=== PATIENT | female | born 1975 | race African-American/Black ===

== ENCOUNTER 2025-02-22 23:46 | Outpatient (BNV) | payer MEDICAID, SELFPAY | END 2025-02-23 13:50 | PROVIDERS: Admitting Provider Psychiatry & Neurology Psychiatry; Responsible Provider Registered Nurse; Visit Provider Internal Medicine | DX: R00.0 Tachycardia, unspecified (principal) | CPT/HCPCS: 93010 ==

== ENCOUNTER 2025-02-22 23:46 | Inpatient (IN) | payer OTHER, SELFPAY ==
[2025-02-23] VITALS (8 sets, daily range): BP systolic 125–177; BP diastolic 88–124; PULSE 95–113; RESP 12–20; TEMP 36.3–37.2; O2SAT 96–98; BMI 49.8
--- NOTE | 2025-02-23 | ECG_ITS ---
Test Reason : PROLONGED QTC Blood Pressure : */* mmHG Vent. Rate : 104 BPM Atrial Rate : 104 BPM P-R Int : 148 ms QRS Dur : 84 ms QT Int : 370 ms P-R-T Axes : 37 7 83 degrees QTcB Int : 486 ms Sinus tachycardia Nonspecific T wave abnormality Abnormal ECG No previous ECGs available Referred By: Lise Rodriguez Electronically Signed By: PAT RIVERA
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
[2025-02-23] MEDS: lisinopriL 5 MG TABLET PO (10:18)
[2025-02-23] MEDS: Acetaminophen 325 MG TABLET 650 MG PO (10:18)
[2025-02-23] MEDS: cloZAPine 25 MG TABLET 150 MG PO (10:18)
[2025-02-23] MEDS: Benztropine Mesylate 0.5 MG TABLET PO ×2 (10:18→20:20)
[2025-02-23] MEDS: amLODIPine Besylate 5 MG TABLET PO ×2 (10:18→14:57)
[2025-02-23] MEDS: metFORMIN HCl 500 MG TABLET PO ×2 (10:18→20:21)
--- NOTE | 2025-02-23 10:33 | HO.PM.IMCN ---
History of Present Illness Data of Consult Service Date: 02/23/25 Primary Care Provider: Unknown Physician HPI Reason for consult: Medical management 49-year-old female with a past medical history of schizoaffective disorder, history of PE July 2024, history of asthma, chronic back pain, hypertension, and type 2 diabetes she was admitted to [facility] ED with delusions, and auditory and visual hallucinations. There is conflicting information regarding her PE, the ED record states that she previously took aspirin as well as apixaban, neither medication was given to her in the ED inpatient reports that it has been 6 months since she has had the PE and she is not taking any medications for this. Patient's blood pressure is elevated today, received lisinopril, amlodipine today. She reports that previously took propranolol as well, will restart this. Reports a history of asthma, takes Advair daily. Not in acute exacerbation. Patient also reports a history of chronic back pain, she takes gabapentin for this, reports that Lidoderm patches are helpful. On review of her previous medical records, she had evidence of an acute kidney injury, on discharge her BUN was 16/creatinine 1.10. She denies any history of kidney issues. Patient reports that she has a every day smoker, would like a nicotine patch. Patient with evidence of prolonged QTC. Review of Systems Review of Systems: Denies any shortness of breath, chest pain, dizziness, lightheadedness, abdominal pain or discomfort, nausea vomiting or diarrhea. PMFSH Social History Household Members: Family Housing: House Do you presently have visiting nurse or other home services: No Patient Tobacco Use Status: Current everyday Tobacco user Tobacco use type: Cigarette and Smokeless Tobacco Cigarette Packs Per Day: 0.3 Cigarettes Per Day: 6.0 Smoked in Last 30 Days: Yes e-Cigarette/Vaping Use: Currently Using Frequency of e-Cigarette/Vaping Use: daily Patient Interested in Nicotine Replacement: Yes Patient Given Instructions on How to Stop Smoking: Yes Date Education Initiated: 02/23/25 Second Hand Smoke Exposure: Yes Have you been hit, kicked, punched, or otherwise hurt by someone within the past year? If so, by whom?: No Do you feel safe in your current relationship?: Yes Is there a partner from a previous relationship who is making you feel unsafe now?: No Are you made to feel afraid or neglected: No Spiritual Healthcare Practices: none reported Anglican Healthcare Practices: none reported Cultural Healthcare Practices: none reported Advance Directives: No Advance Directives Information Provided: Yes Do you have a plan to hurt others: No Plan Recently lost weight without trying: No How much weight loss: Not applicable Eating poorly because of decreased appetite: No Nutrition screen score: 0 Nutrition Risks: Diabetes new onset/Uncontrolled Patient : No : No Poor oral hygiene: No service: No Sexual orientation: Straight/Heterosexual Meds Allergies Allergy/AdvReac Type Severity Reaction Status Date / Time shellfish derived (shellfish) Allergy Difficulty Verified 02/22/25 23:53 Swallowing naproxen AdvReac Hives Verified 02/22/25 23:53 Penicillins (PCN) AdvReac Anaphylaxis Verified 02/22/25 23:53 Active Medications: Current Medications Acetaminophen (Acetaminophen 325 Mg Tablet) 650 mg PO Q6H PRN PRN Reason: Headache/Pain, Scale 1-10 Last Admin: 02/23/25 10:18 Dose: 650 mg Al Hydroxide/Mg Hydroxide (Magnesium Hydrox/Alum Hydrox 30 Ml Oral.Susp) 30 ml PO Q6H PRN PRN Reason: Heartburn/Nausea Albuterol Sulfate (Albuterol Sulfate 90 Mcg 8 Gm Inhaler) 1 puff INHALE RQ4H PRN PRN Reason: Shortness of Breath Amlodipine Besylate (Amlodipine Besylate 5 Mg Tablet) 5 mg PO DAILY [facility]; Protocol Last Admin: 02/23/25 10:18 Dose: 5 mg Benztropine Mesylate (Benztropine Mesylate 0.5 Mg Tablet) 0.5 mg PO BID [facility] Last Admin: 02/23/25 10:18 Dose: 0.5 mg Chlorpromazine HCl (Chlorpromazine Hcl 25 Mg Tablet) 50 mg PO BEDTIME [facility] Chlorpromazine HCl (Chlorpromazine Hcl 25 Mg Tablet) 25 mg PO Q6H PRN PRN Reason: Agitation Clozapine (Clozapine 100 Mg Tablet) 100 mg PO DAILY [facility] Clozapine (Clozapine 100 Mg Tablet) 200 mg PO BEDTIME [facility] Gabapentin (Gabapentin 400 Mg Capsule) 800 mg PO QID [facility] Haloperidol (Haloperidol 5 Mg Tablet) 10 mg PO BID PRN PRN Reason: Agitation Hydroxyzine HCl (Hydroxyzine Hcl 25 Mg Tablet) 25 mg PO Q6H PRN PRN Reason: mild anxiety Lisinopril (Lisinopril 5 Mg Tablet) 5 mg PO DAILY [facility]; Protocol Last Admin: 02/23/25 10:18 Dose: 5 mg Magnesium Hydroxide (Milk Of Magnesia 30 Ml Oral.Susp) 30 ml PO DAILY PRN PRN Reason: Constipation Metformin HCl (Metformin Hcl 500 Mg Tablet) 500 mg PO BID [facility] Last Admin: 02/23/25 10:18 Dose: 500 mg Nicotine Polacrilex (Nicotine Polacrilex 2 Mg Gum) 4 mg BUCCAL Q2H PRN PRN Reason: Nicotine Cravings Oxybutynin Chloride (Oxybutynin Chloride 5 Mg Tablet) 5 mg PO BID [facility] Prazosin HCl (Prazosin Hcl 1 Mg Capsule) 1 mg PO BEDTIME [facility]; Protocol Senna (Sennosides 8.6 Mg Tablet) 17.2 mg PO DAILY [facility] Trazodone HCl (Trazodone Hcl 50 Mg Tablet) 50 mg PO BEDTIME MRX1 PRN PRN Reason: Insomnia Trazodone HCl (Trazodone Hcl 100 Mg Tablet) 100 mg PO BEDTIME [facility] Home Medications ?Medication ?Instructions ?Recorded ?Confirmed ?Last Taken ?Type albuterol sulfate 90 mcg/actuation See Rx Instructions .Route 02/23/25 02/23/25 02/22/25 History aerosol inhaler (Ventolin HFA) .COMPLEX PRN Shortness Of Breath amlodipine 5 mg tablet 5 mg PO DAILY 02/23/25 02/23/25 Unknown History aspirin 325 mg tablet,delayed 325 mg PO DAILY 02/23/25 02/23/25 Unknown History release benztropine 0.5 mg tablet 0.5 mg PO BID 02/23/25 02/23/25 02/21/25 History calcium carbonate (Иван-Gest 200 mg PO TID PRN Gastric Reflux 02/23/25 02/23/25 Unknown History Antacid) chlorpromazine 25 mg tablet 25 mg PO Q6H PRN Agitation 02/23/25 02/23/25 Unknown History chlorpromazine 50 mg tablet 50 mg PO BEDTIME insomnia 02/23/25 02/23/25 02/22/25 20:00 History clozapine 100 mg tablet 100 mg PO DAILY 02/23/25 02/23/25 02/21/25 09:30 History clozapine 200 mg tablet 200 mg PO BEDTIME 02/23/25 02/23/25 02/22/25 20:00 History cyanocobalamin (vitamin B-12) 2,000 mcg DAILY 02/23/25 02/23/25 Unknown History 1,000 mcg tablet (Vitamin B-12) diclofenac sodium 1 % topical gel topical 02/23/25 Unknown History fluticasone propionate 50 intranasal DAILY 02/23/25 Unknown History mcg/actuation nasal spray,suspension gabapentin 800 mg tablet 800 mg PO QID pain 02/23/25 02/23/25 02/22/25 20:00 History haloperidol 5 mg tablet 10 mg PO BID PRN Agitation 02/23/25 02/23/25 02/22/25 12:20 History hydroxyzine pamoate 50 mg capsule 50 mg PO BID 02/23/25 02/23/25 Unknown History lidocaine 5 % topical patch 1 patch topical DAILY 02/23/25 02/23/25 Unknown History lisinopril 5 mg tablet 5 mg PO DAILY blood pressure 02/23/25 02/23/25 02/22/25 09:00 History melatonin 3 mg tablet 3 mg PO PRN Insomnia 02/23/25 Unknown History metformin 500 mg tablet 500 mg PO BID 02/23/25 02/23/25 Unknown History oxybutynin chloride 5 mg tablet 5 mg PO BID 02/23/25 02/23/25 Unknown History prazosin 1 mg capsule 1 mg PO BEDTIME 02/23/25 02/23/25 Unknown History sennosides 8.6 mg tablet (senna) 17.2 mg PO DAILY 02/23/25 02/23/25 Unknown History trazodone 100 mg tablet 100 mg PO BEDTIME 02/23/25 02/23/25 Unknown History Physical Exam Vital Signs and Narrative: Vital Signs: Last Vital Signs Temp 97.4 F 02/23/25 07:05 Pulse 95 02/23/25 07:05 Resp 16 02/23/25 08:55 BP 170/94 H 02/23/25 10:18 Pulse Ox 98 02/23/25 07:05 O2 Del Method Room Air 02/23/25 07:05 BMI result Body Mass Index 49.8 Alert and oriented X3, able to give good history. Weepy at times. Neuro: CN II-X11 intact, no deficits, visual acuity intact EYES: PERRLA, EOM intact ENT: Hearing intact, lips moist Cardiac: S1 S2 RRR, No ectopy Pulmonary: lungs clear to auscultation, No increased WOB. No wheeze Abdominal: BS active in all 4 quadrants, no guarding or tenderness MSK: Strength 5/5 upper and lower extremities : Deferred Extremities: No edema in lower extremities Psych: mood stable, Quiet and cooperative. Skin: Warm and dry, Intact Assessment and Plan (1) HTN (hypertension): Status: Acute Plan Schizoaffective disorder/auditory and visual hallucinations. Plan per psychiatric team Hypertension Continue lisinopril and Norvasc, add propranolol. Continue to follow up in adjust medications as needed History of PE Not on aspirin or apixaban Diagnosed 07/2024, has been 6 months since she was diagnosed with a PE. Will need follow up with her primary care upon discharge Type 2 diabetes Continue metformin 500 b.i.d., check A1c. Asthma Start Breo and albuterol as needed Not in acute exacerbation Chronic back pain Continue gabapentin as ordered, on max dose We will need adjustments based on renal function Tylenol as needed, and Lidoderm patches Thank you for allowing me to participate in the care of this patient. Signing off at this time. Please reconsult of any acute concerns or issues arise
--- NOTE | 2025-02-23 10:49 | PC.NURSE ---
Patient submitted three day notice
[2025-02-23] MEDS: Propranolol HCL 10 MG TABLET PO ×2 (12:15→20:20)
[2025-02-23] MEDS: Albuterol Sulfate 90 MCG 8 GM INHALER 1 PUFF INHALE (12:16)
[2025-02-23] MEDS: Gabapentin 400 MG CAPSULE 800 MG PO ×3 (12:16→20:19)
[2025-02-23] MEDS: Lidocaine 4 % Patch ADH..PATCH 1 PATCH TRANSDERMA (12:16)
[2025-02-23] MEDS: Nicotine 21 MG PATCH.TD24 TRANSDERMA (14:56)
[2025-02-23] MEDS: Acetaminophen 325 MG TABLET 975 MG PO (16:37)
[2025-02-23] MEDS: hydrOXYzine HCL 25 MG TABLET PO (16:46)
[2025-02-23] MEDS: HaloperidoL 5 MG TABLET 10 MG PO (18:51)
[2025-02-23] MEDS: Prazosin HCL 1 MG CAPSULE PO (20:19)
[2025-02-23] MEDS: cloZAPine 100 MG TABLET 200 MG PO (20:20)
[2025-02-23] MEDS: traZODone HCL 100 MG TABLET PO (20:20)
[2025-02-23] MEDS: oxyBUTYnin chloride 5 MG TABLET PO (20:21)
[2025-02-23] MEDS: chlorproMAZINE HCl 25 MG TABLET 50 MG PO (20:21)
[2025-02-24] MEDS: hydrOXYzine HCL 25 MG TABLET PO ×2 (06:44→13:08)
[2025-02-24] MEDS: Acetaminophen 325 MG TABLET 975 MG PO ×3 (06:44→22:15)
[2025-02-24 07:41] VITALS: BP 159/111; PULSE 94; RESP 16; TEMP 36.7; O2SAT 99
[2025-02-24] MEDS: Sennosides 8.6 MG TABLET 17.2 MG PO (08:05)
[2025-02-24] MEDS: Propranolol HCL 10 MG TABLET PO ×2 (08:06→21:33)
[2025-02-24] MEDS: cloZAPine 100 MG TABLET PO (08:06)
[2025-02-24] MEDS: metFORMIN HCl 500 MG TABLET PO ×2 (08:06→21:33)
[2025-02-24] MEDS: Benztropine Mesylate 0.5 MG TABLET PO ×2 (08:06→21:34)
[2025-02-24] MEDS: lisinopriL 5 MG TABLET PO (08:06)
[2025-02-24 08:07] LABS: MANUAL DIFF FLAG NO
[2025-02-24] MEDS: Gabapentin 400 MG CAPSULE 800 MG PO ×4 (08:07→21:34)
[2025-02-24] MEDS: oxyBUTYnin chloride 5 MG TABLET PO ×2 (08:07→21:33)
[2025-02-24 08:09] LABS: Basophils Percent Auto 0.1 % (0-2); Hematocrit 34.7 % (37.0-47.0); Hemoglobin 11.6 g/dl (12.0-16.0); Imm Gran Abs Auto 0.03 X10*3/uL (0.00-0.03); Imm Gran Pct Auto 0.4 % (0.0-0.4); Lymphocytes Percent Auto 22.9 % (20-40); Mean Corpuscular HGB Conc 33.4 g/dl (31.0-35.0); Mean Corpuscular Hemoglobin 29.6 pg (27.0-33.0); Mean Corpuscular Volume 88.5 fL (80.0-98.0); Mean Platelet Volume 8.7 fL (9.4-12.3); Monocytes Absolute Auto 0.4 X10*3/uL (0.1-1.2); Monocytes Percent Auto 4.8 % (2-11); Neutrophils Absolute Auto 6.2 x10*3/uL (2.0-8.3); Neutrophils Percent Auto 71.8 % (45-73); Platelet Count 333 X10*3/uL (160-400); Red Blood Count 3.92 X10*6/uL (4.20-5.50); Red Cell Distribution Width 15.1 % (11.0-16.0); White Blood Count 8.6 X10*3/uL (4.8-10.8)
[2025-02-24] MEDS: Nicotine 21 MG PATCH.TD24 TRANSDERMA (08:09)
[2025-02-24 08:10] LABS: Neut%MD 71.7 %; WBCANC 8.4 X10*3/uL
[2025-02-24] MEDS: Lidocaine 4 % Patch ADH..PATCH 1 PATCH TRANSDERMA (08:11)
[2025-02-24 08:22] LABS: Creatinine Clr Calc Pharmacy 106.8; Estimated Glomerular Filt Rate > 60
[2025-02-24 08:24] LABS: Estimated Average Glucose 146 mg/dL; Hemoglobin A1c % 6.7 % (<6.0)
[2025-02-24 08:36] LABS: Alanine Aminotransferase 6 U/L (0-31); Alkaline Phosphatase 121 U/L (39-117); Anion Gap 13 (12-20); Aspartate Amino Transferase 16 U/L (5-31); Bilirubin Total 0.2 mg/dL (0.0-1.0); Blood Urea Nitrogen 16 mg/dL (9-16); Calcium 9.8 mg/dL (8.4-10.2); Carbon Dioxide 29 mmol/L (22-29); Chloride 103 mmol/L (96-108); Creatinine Clr Calc Pharmacy 106.8; Estimated Glomerular Filt Rate > 60; Glucose Random 151 mg/dL (60-115); Potassium 4.2 mmol/L (3.3-5.1); Sodium 141 mmol/L (135-145); Total Protein 7.1 g/dL (6.5-8.0)
[2025-02-24 08:37] LABS: Cholesterol 214 mg/dL (<200); HDL Cholesterol 49 mg/dL (>40); LDL Cholesterol Calculated 112 mg/dL (<100); Triglycerides 267 mg/dL (<150)
[2025-02-24] MEDS: Fluticasone/Vilanterol 200/25 BLST.W.DEV 1 PUFF INHALE (08:44)
[2025-02-24] MEDS: HaloperidoL 5 MG TABLET 10 MG PO ×2 (08:44→22:15)
[2025-02-24 08:46] LABS: TSH reflex Free T4 1.06 uIU/mL (0.32-4.0)
[2025-02-24 08:48] LABS: Free T4 (Free Thyroxine) 1.05 ng/dL (0.71-1.85); Thyroid Stimulating Hormone 1.04 uIU/mL (0.32-4.0)
[2025-02-24 08:59] LABS: Folate 8.1 ng/mL (> or = 4.0); Vitamin B12 360 pg/mL (200-900)
--- NOTE | 2025-02-24 10:20 | HO.PSYCHPN ---
Subjective Subjective Date of Service: 02/24/25 Reason For Visit: Schizoaffective Disorder, Current Episode mixed Subjective Notes: 3 Day Interim History: Keeping to self. Patient reports feeling fine today; pt stated, I'm waiting to leave on Saturday . denies any issues at this time. denies SI/HI/VH/AH. Pt did not make any delusional statements during assessment. c/o constipation; ordered colace 100mg PO BID. encouraged to attend groups. 3 day up on 02/26/25. Medication Compliance: Yes Side effects from medications: No Attending Groups: No Mental Status Exam Mental Status Exam Narrative: Pt is alert and oriented; behavior is cooperative and calm; dressed in casual attire; mood is described as good ; eye contact appropriate; Speech is normal rate, volume and not pressured; thought process is organized; Thought content is on discharge; did not make any delusional statements during assessment; denies SI/HI/VH/AH. Diagnostics Vital Signs (24Hr): Vital Signs - 24 hr 02/23/25 12:15 02/23/25 12:15 02/23/25 13:54 Temperature Pulse Rate 113 H 113 H 104 H Respiratory Rate 20 Blood Pressure 157/112 H 157/112 H 140/104 H Pulse Oximetry Oxygen Delivery Method 02/23/25 14:57 02/23/25 19:15 02/24/25 07:41 Temperature 98.1 F 98.1 F Pulse Rate 99 94 Respiratory Rate 16 16 Blood Pressure 139/88 169/91 H 159/111 H Pulse Oximetry 96 99 Oxygen Delivery Method Room Air Room Air BMI result Body Mass Index 49.8 Labs 02/24/25 08:01 02/24/25 08:01 Labs: Laboratory Results - last 48 hr 02/24/25 02/24/25 02/24/25 08:01 08:01 08:01 WBC 8.6 RBC 3.92 L Hgb 11.6 L Hct 34.7 L MCV 88.5 MCH 29.6 MCHC 33.4 RDW 15.1 Plt Count 333 MPV 8.7 L Immature Gran % (Auto) 0.4 Neut % (Auto) 71.8 Lymph % (Auto) 22.9 [place] % (Auto) 4.8 Eos % (Auto) 0.0 Baso % (Auto) 0.1 Lymph # (Auto) 2.0 [place] # (Auto) 0.4 Eos # (Auto) 0.0 Baso # (Auto) 0.0 Abs Immat Gran (auto) 0.03 Absolute Neuts (auto) 6.0 6.2 Absolute Nucleated RBC 0.000 Nucleated RBC % (auto) 0.0 Sodium 141 Potassium 4.2 Chloride 103 Carbon Dioxide 29 Anion Gap 13 BUN 16 Creatinine 0.91 0.91 Estim Creat Clear Calc 106.8 Estimated GFR Random Glucose Estimat Average Glucose Hemoglobin A1c % Calcium Total Bilirubin AST ALT Alkaline Phosphatase Total Protein Albumin Triglycerides Cholesterol LDL Cholesterol, Calc HDL Cholesterol Vitamin B12 Folate TSH Free T4 02/24/25 02/24/25 02/24/25 08:01 08:01 08:01 WBC RBC Hgb Hct MCV MCH MCHC RDW Plt Count MPV Immature Gran % (Auto) Neut % (Auto) Lymph % (Auto) [place] % (Auto) Eos % (Auto) Baso % (Auto) Lymph # (Auto) [place] # (Auto) Eos # (Auto) Baso # (Auto) Abs Immat Gran (auto) Absolute Neuts (auto) Absolute Nucleated RBC Nucleated RBC % (auto) Sodium Potassium Chloride Carbon Dioxide Anion Gap BUN Creatinine Estim Creat Clear Calc 106.8 Estimated GFR > 60 > 60 Random Glucose 151 H Estimat Average Glucose 146 Hemoglobin A1c % 6.7 H Calcium 9.8 Total Bilirubin 0.2 AST 16 ALT 6 Alkaline Phosphatase 121 H Total Protein 7.1 Albumin 4.0 Triglycerides 267 H Cholesterol 214 H LDL Cholesterol, Calc 112 H HDL Cholesterol 49 Vitamin B12 360 Folate 8.1 TSH 1.06 1.04 Free T4 1.05 Medications Medications Current Medications Acetaminophen (Acetaminophen 325 Mg Tablet) 975 mg PO Q6H PRN PRN Reason: Pain, Moderate(Pain Scale 4-6) Last Admin: 02/24/25 06:44 Dose: 975 mg Al Hydroxide/Mg Hydroxide (Magnesium Hydrox/Alum Hydrox 30 Ml Oral.Susp) 30 ml PO Q6H PRN PRN Reason: Heartburn/Nausea Albuterol Sulfate (Albuterol Sulfate 90 Mcg 8 Gm Inhaler) 1 puff INHALE RQ4H PRN PRN Reason: Shortness of Breath Last Admin: 02/23/25 12:16 Dose: 1 puff Albuterol Sulfate (Albuterol Sulfate 90 Mcg 8 Gm Inhaler) 2 puff INHALE RQ6H PRN PRN Reason: Shortness of Breath/Wheezing Amlodipine Besylate (Amlodipine Besylate 10 Mg Tablet) 10 mg PO BEDTIME [facility]; Protocol Benztropine Mesylate (Benztropine Mesylate 0.5 Mg Tablet) 0.5 mg PO BID [facility] Last Admin: 02/24/25 08:06 Dose: 0.5 mg Chlorpromazine HCl (Chlorpromazine Hcl 25 Mg Tablet) 50 mg PO BEDTIME [facility] Last Admin: 02/23/25 20:21 Dose: 50 mg Chlorpromazine HCl (Chlorpromazine Hcl 25 Mg Tablet) 25 mg PO Q6H PRN PRN Reason: Agitation Clozapine (Clozapine 100 Mg Tablet) 100 mg PO DAILY [facility] Last Admin: 02/24/25 08:06 Dose: 100 mg Clozapine (Clozapine 100 Mg Tablet) 200 mg PO BEDTIME [facility] Last Admin: 02/23/25 20:20 Dose: 200 mg Docusate Sodium (Docusate Sodium 100 Mg Capsule) 100 mg PO BID [facility] Fluticasone/Vilanterol (Fluticasone/Vilanterol 200/25 Blst.W.Dev) 1 puff INHALE RDAILY [facility] Last Admin: 02/24/25 08:44 Dose: 1 puff Gabapentin (Gabapentin 400 Mg Capsule) 800 mg PO QID [facility] Last Admin: 02/24/25 08:07 Dose: 800 mg Haloperidol (Haloperidol 5 Mg Tablet) 10 mg PO BID PRN PRN Reason: Agitation Last Admin: 02/24/25 08:44 Dose: 10 mg Hydroxyzine HCl (Hydroxyzine Hcl 25 Mg Tablet) 25 mg PO Q6H PRN PRN Reason: mild anxiety Last Admin: 02/24/25 06:44 Dose: 25 mg Lidocaine (Lidocaine 4 % Patch Adh..Patch) 1 patch TRANSDERMA DAILY [facility]; Protocol Last Admin: 02/24/25 08:11 Dose: 1 patch Lisinopril (Lisinopril 5 Mg Tablet) 5 mg PO DAILY [facility]; Protocol Last Admin: 02/24/25 08:06 Dose: 5 mg Magnesium Hydroxide (Milk Of Magnesia 30 Ml Oral.Susp) 30 ml PO DAILY PRN PRN Reason: Constipation Metformin HCl (Metformin Hcl 500 Mg Tablet) 500 mg PO BID [facility] Last Admin: 02/24/25 08:06 Dose: 500 mg Nicotine (Nicotine 21 Mg Patch.Td24) 21 mg TRANSDERMA DAILY [facility] Last Admin: 02/24/25 08:09 Dose: 21 mg Nicotine Polacrilex (Nicotine Polacrilex 2 Mg Gum) 4 mg BUCCAL Q2H PRN PRN Reason: Nicotine Cravings Oxybutynin Chloride (Oxybutynin Chloride 5 Mg Tablet) 5 mg PO BID [facility] Last Admin: 02/24/25 08:07 Dose: 5 mg Prazosin HCl (Prazosin Hcl 1 Mg Capsule) 1 mg PO BEDTIME [facility]; Protocol Last Admin: 02/23/25 20:19 Dose: 1 mg Propranolol HCl (Propranolol Hcl 10 Mg Tablet) 10 mg PO BID [facility]; Protocol Last Admin: 02/24/25 08:06 Dose: 10 mg Senna (Sennosides 8.6 Mg Tablet) 17.2 mg PO DAILY [facility] Last Admin: 02/24/25 08:05 Dose: 17.2 mg Trazodone HCl (Trazodone Hcl 100 Mg Tablet) 100 mg PO BEDTIME [facility] Last Admin: 02/23/25 20:20 Dose: 100 mg Allergies Allergies Allergy/AdvReac Type Severity Reaction Status Date / Time ibuprofen Allergy Unknown Unknown Unverified 02/23/25 14:26 shellfish derived (shellfish) Allergy Difficulty Verified 02/22/25 23:53 Swallowing naproxen AdvReac Hives Verified 02/22/25 23:53 Penicillins (PCN) AdvReac Anaphylaxis Verified 02/22/25 23:53 Assessment & Plan Assessment & Plan (1) Schizoaffective disorder: Status: Acute Code(s): F25.9 - Schizoaffective disorder, unspecified (2) PTSD (post-traumatic stress disorder): Status: Acute Code(s): F43.10 - Post-traumatic stress disorder, unspecified (3) Cocaine use disorder: Status: Acute Code(s): F14.10 - Cocaine abuse, uncomplicated Plan Patient is a 49 year old female with hx of schizoaffective d/o, PTSD and cocaine use d/o, who presented to ER d/t suicidal ideation with thoughts of jumping into traffic secondary to argument with family members. Plan: CV 15 minute safety checks obtain collateral continue home medications labs encourage groups discharge planning 02/24: Keeping to self. Patient reports feeling fine today; pt stated, I'm waiting to leave on Brian . denies any issues at this time. denies SI/HI/VH/AH. Pt did not make any delusional statements during assessment. c/o constipation; ordered colace 100mg PO BID. encouraged to attend groups. 3 day up on 02/26/25. Continue curren tx plan. Patient educated on: diagnosis, medication risk/benefits and therapeutic strategies Reason for continued inpatient stay Substantial Risk for: med/psych decompensation Time Spent With Patient Time: Total time managing care of this patient today _20___ minutes.
[2025-02-24] MEDS: Docusate Sodium 100 MG CAPSULE PO ×2 (11:28→21:34)
[2025-02-24 11:39] LABS: Influenza A PCR NEGATIVE (Negative); Influenza B PCR NEGATIVE (Negative); Resp Syncy Virus RNA Qual PCR NEGATIVE (Negative); SARS COV2 PCR INHOUSE NEGATIVE (Negative)
[2025-02-24] MEDS: chlorproMAZINE HCl 25 MG TABLET PO (13:09)
[2025-02-24] MEDS: Magnesium Hydrox/Alum Hydrox 30 ML ORAL.SUSP PO (13:36)
[2025-02-24] MEDS: Milk of Magnesia 30 ML ORAL.SUSP PO (15:04)
[2025-02-24 21:30] VITALS: BP 138/93; PULSE 103; O2SAT 93
[2025-02-24] MEDS: traZODone HCL 100 MG TABLET PO (21:33)
[2025-02-24] MEDS: chlorproMAZINE HCl 25 MG TABLET 50 MG PO (21:33)
[2025-02-24] MEDS: amLODIPine Besylate 10 MG TABLET PO (21:33)
[2025-02-24] MEDS: cloZAPine 100 MG TABLET 200 MG PO (21:34)
[2025-02-25 07:56] VITALS: BP 136/91; PULSE 113; RESP 16; O2SAT 98
[2025-02-25] MEDS: lisinopriL 5 MG TABLET PO ×2 (08:23→12:23)
[2025-02-25] MEDS: Propranolol HCL 10 MG TABLET PO ×2 (08:23→21:40)
[2025-02-25] MEDS: Gabapentin 400 MG CAPSULE 800 MG PO ×4 (08:23→21:37)
[2025-02-25] MEDS: Benztropine Mesylate 0.5 MG TABLET PO ×2 (08:23→21:36)
[2025-02-25] MEDS: Docusate Sodium 100 MG CAPSULE PO ×2 (08:23→21:37)
[2025-02-25] MEDS: Sennosides 8.6 MG TABLET 17.2 MG PO (08:23)
[2025-02-25] MEDS: oxyBUTYnin chloride 5 MG TABLET PO ×2 (08:24→21:37)
[2025-02-25] MEDS: metFORMIN HCl 500 MG TABLET PO ×2 (08:24→21:37)
[2025-02-25] MEDS: cloZAPine 100 MG TABLET PO (08:24)
[2025-02-25] MEDS: Nicotine 21 MG PATCH.TD24 TRANSDERMA (08:26)
[2025-02-25] MEDS: Fluticasone/Vilanterol 200/25 BLST.W.DEV 1 PUFF INHALE (08:27)
[2025-02-25 08:35] LABS: Estimated Average Glucose 146 mg/dL; Hemoglobin A1C 150.9187 umol/L; Hemoglobin A1c % 6.7 % (<6.0)
[2025-02-25] MEDS: HaloperidoL 5 MG TABLET 10 MG PO ×2 (08:35→21:39)
[2025-02-25] MEDS: hydrOXYzine HCL 25 MG TABLET PO ×2 (08:35→21:54)
[2025-02-25] MEDS: Acetaminophen 325 MG TABLET 975 MG PO ×2 (08:35→21:54)
[2025-02-25] MEDS: Lidocaine 4 % Patch ADH..PATCH 1 PATCH TRANSDERMA (08:37)
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
[2025-02-25 12:23] VITALS: BP 141/84
--- NOTE | 2025-02-25 16:24 | P.DS_ITS ---
DS: Providers Provider Date of Service: 02/25/25 Date of admission: 02/22/25 23:46 Date of discharge: 02/26/25 Primary care physician: Unknown Physician Admitting clinician: Malaika Plascencia Attending physician on admission: Osmar Price Consults: 02/23/25 00:25 Consult to Hospitalist Routine Comment: Consulting Provider: [facility] Reason For Exam: OSH admission 02/23/25 14:04 Consult to Hospitalist Routine Comment: Consulting Provider: [facility] Reason For Exam: hypertension Attending physician on discharge: Osmar Price Discharging clinician: Malaika Plascencia DS: Diagnosis Discharge Diagnosis (1) Schizoaffective disorder: Status: Acute (2) PTSD (post-traumatic stress disorder): Status: Acute (3) Cocaine use disorder: Status: Acute DS: Medications Discharge Medications Home Medications: Previous Rx's ?Medication ?Instructions ?Recorded albuterol sulfate 90 mcg/actuation See Rx Instructions .Route 02/26/25 aerosol inhaler (Ventolin HFA) .COMPLEX PRN Shortness Of Breath 30 days #1 inhaler amlodipine 10 mg tablet 10 mg PO BEDTIME 30 days #30 tabs 02/26/25 aspirin 325 mg tablet,delayed 325 mg PO DAILY 30 days #30 tabs 02/26/25 release benztropine 0.5 mg tablet 0.5 mg PO BID 30 days #60 ta bs 02/26/25 calcium carbonate (Иван-Gest 200 mg PO TID PRN Gastric Reflux 02/26/25 Antacid) 30 days #90 tabs chlorpromazine 25 mg tablet 50 mg (2 x 25 mg) PO BID 3 0 days 02/26/25 #120 tabs cholecalciferol (vitamin D3) 25 25 mcg PO DAILY 30 day s #30 caps 02/26/25 mcg (1,000 unit) capsule (Vitamin D3) clozapine 100 mg tablet 100 mg PO DAILY 30 days #30 tabs 02/26/25 clozapine 200 mg tablet 200 mg PO BEDTIME 30 days #3 0 tabs 02/26/25 cyanocobalamin (vitamin B-12) 2,000 mcg (2 x 1,000 mcg ) PO DAILY 02/26/25 1,000 mcg tablet (Vitamin B-12) 30 days #60 tabs diclofenac sodium 1 % topical gel 2 g topical BID-TID 30 days #100 02/26/25 grams docusate sodium 100 mg capsule 100 mg PO BID 30 days # 60 caps 02/26/25 fluticasone propionate 115 2 puff inhalation BID 30 da ys #12 02/26/25 mcg-salmeterol 21 mcg/actuation grams HFA inhaler (Advair HFA) fluticasone propionate 50 1 spray intranasal DAILY 30 days 02/26/25 mcg/actuation nasal #16 grams spray,suspension gabapentin 800 mg tablet 800 mg PO QID pain 30 days # 120 02/26/25 tabs haloperidol 5 mg tablet 10 mg (2 x 5 mg) PO TID Agit ation 02/26/25 30 days #180 tabs hydroxyzine pamoate 50 mg capsule 50 mg PO QID 30 days #120 caps 02/26/25 lidocaine 5 % topical patch 1 patch topical DAILY 30 d ays #30 02/26/25 ea lisinopril 10 mg tablet 10 mg PO DAILY 30 days #30 t abs 02/26/25 melatonin 3 mg tablet 3 mg PO BEDTIME PRN Insomnia 30 02/26/25 days #30 tabs metformin 500 mg tablet 500 mg PO BID 30 days #60 ta bs 02/26/25 nicotine (polacrilex) 2 mg gum 4 mg buccal Q2H PRN Jose otine 02/26/25 Cravings 30 days #120 ea nicotine 21 mg/24 hr daily 21 mg transdermal DAILY 28 days 02/26/25 transdermal patch #28 ea oxybutynin chloride 5 mg tablet 5 mg PO BID 30 days #6 0 tabs 02/26/25 propranolol 10 mg tablet 10 mg PO BID 30 days #60 tab s 02/26/25 sennosides 8.6 mg tablet (senna) 17.2 mg (2 x 8.6 mg) PO DAILY 30 02/26/25 days #60 tabs trazodone 100 mg tablet 100 mg PO BEDTIME 30 days #3 0 tabs 02/26/25 Mental Status Exam Mental Status Exam Narrative: Pt is alert and oriented; behavior is cooperative and calm; dressed in casual attire; mood is described as good ; eye contact appropriate; Speech is normal rate, volume and not pressured; thought process is organized; Thought content is on discharge; denies SI/HI/VH/AH. Data Data Completed and Pending Completed studies during hospitalization [Text1]: 02/24/25 02/24/25 02/24/25 08:01 08:01 08:01 WBC 8.6 RBC 3.92 L Hgb 11.6 L Hct 34.7 L MCV 88.5 MCH 29.6 MCHC 33.4 RDW 15.1 Plt Count 333 MPV 8.7 L Immature Gran % (Auto) 0.4 Neut % (Auto) 71.8 Lymph % (Auto) 22.9 [place] % (Auto) 4.8 Eos % (Auto) 0.0 Baso % (Auto) 0.1 Lymph # (Auto) 2.0 [place] # (Auto) 0.4 Eos # (Auto) 0.0 Baso # (Auto) 0.0 Abs Immat Gran (auto) 0.03 Absolute Neuts (auto) 6.0 6.2 Absolute Nucleated RBC 0.000 Nucleated RBC % (auto) 0.0 Sodium 141 Potassium 4.2 Chloride 103 Carbon Dioxide 29 Anion Gap 13 BUN 16 Creatinine 0.91 0.91 Estim Creat Clear Calc 106.8 Estimated GFR Random Glucose Estimat Average Glucose Hemoglobin A1c % Calcium Total Bilirubin AST ALT Alkaline Phosphatase Total Protein Albumin Triglycerides Cholesterol LDL Cholesterol, Calc HDL Cholesterol Vitamin B12 Folate TSH Free T4 Influenza Type A (PCR) Influenza Type B (PCR) RSV RNA Qual (PCR) SARS-CoV-2 RNA (RT-PCR) 02/24/25 02/24/25 02/24/25 08:01 08:01 08:01 WBC RBC Hgb Hct MCV MCH MCHC RDW Plt Count MPV Immature Gran % (Auto) Neut % (Auto) Lymph % (Auto) [place] % (Auto) Eos % (Auto) Baso % (Auto) Lymph # (Auto) [place] # (Auto) Eos # (Auto) Baso # (Auto) Abs Immat Gran (auto) Absolute Neuts (auto) Absolute Nucleated RBC Nucleated RBC % (auto) Sodium Potassium Chloride Carbon Dioxide Anion Gap BUN Creatinine Estim Creat Clear Calc 106.8 Estimated GFR > 60 > 60 Random Glucose 151 H Estimat Average Glucose 146 Hemoglobin A1c % 6.7 H Calcium 9.8 Total Bilirubin 0.2 AST 16 ALT 6 Alkaline Phosphatase 121 H Total Protein 7.1 Albumin 4.0 Triglycerides 267 H Cholesterol 214 H LDL Cholesterol, Calc 112 H HDL Cholesterol 49 Vitamin B12 360 Folate 8.1 TSH 1.06 1.04 Free T4 1.05 Influenza Type A (PCR) Influenza Type B (PCR) RSV RNA Qual (PCR) SARS-CoV-2 RNA (RT-PCR) 02/24/25 02/25/25 10:40 07:47 WBC RBC Hgb Hct MCV MCH MCHC RDW Plt Count MPV Immature Gran % (Auto) Neut % (Auto) Lymph % (Auto) [place] % (Auto) Eos % (Auto) Baso % (Auto) Lymph # (Auto) [place] # (Auto) Eos # (Auto) Baso # (Auto) Abs Immat Gran (auto) Absolute Neuts (auto) Absolute Nucleated RBC Nucleated RBC % (auto) Sodium Potassium Chloride Carbon Dioxide Anion Gap BUN Creatinine Estim Creat Clear Calc Estimated GFR Random Glucose Estimat Average Glucose 146 Hemoglobin A1c % 6.7 H Calcium Total Bilirubin AST ALT Alkaline Phosphatase Total Protein Albumin Triglycerides Cholesterol LDL Cholesterol, Calc HDL Cholesterol Vitamin B12 Folate TSH Free T4 Influenza Type A (PCR) NEGATIVE Influenza Type B (PCR) NEGATIVE RSV RNA Qual (PCR) NEGATIVE SARS-CoV-2 RNA (RT-PCR) NEGATIVE DS: Summary Hospital Course Hospital Course: Patient is a 49 year old female with hx of schizoaffective d/o, PTSD and cocaine use d/o, who presented to ER d/t suicidal ideation with thoughts of jumping into traffic secondary to argument with family members. Per crisis report, Patient called 911 with thoughts of wanting to harm herself and others. Pt reports intermittent low mood with vague AH/VH. SI/HI diminished while in ER. pt reports intermittent hallucinations of ghosts and vague voices. denies SI/HI. Patient presents with delusional statements saying she is a psychic-psychiatrist and she attended [facility] for this 2 years ago. Patient reports she birthed 3 babies, 5 months ago and has not seen them since. She is worried her took them to [place] where he is from ; She states her is a doctor and pro football player for [employer]. She reports that her family does not care about her and wants to kill her for insurance money. She reportedly got into an argument with them this morning which resulted in having suicidal thoughts with a plan to jump into traffic. History of suicide attempts; last being 2 years ago via intentional overdose on fentanyl. Patient was discharged from [facility] earlier this month and is not sure what medication she should be taking. Utox positive for cocaine. During admission assessment, patient presents alert and oriented x3. calm and cooperative. Grandiose delusions. Paranoid ideation. Patient stated, I was staying in a [facility]. My son and mother took out an insurance plan on me and they are trying to harm me. The keep coming to see me where I was . Patient denies substance use however, utox positive for cocaine. Patient denies auditory and visual hallucinations at this time; patient stated, sometimes I see ghosts and hear voices but nothing today . She reports having 10 children who are with her . She reports being related to various musicians. Denies SI/HI/VH/AH. Patient reports having outpatient psychiatric providers. Patient stated, I mentally feel stable. I just want to go back to my domestic violence prison. I don't want to hurt myself or anyone else . Patient was able to state medications and dosages that she is currently prescribed. Plan: CV 15 minute safety checks obtain collateral continue home medications labs encourage groups discharge planning Keeping to self. Patient reports feeling fine today; pt stated, I'm waiting to leave on Saturday . denies any issues at this time. denies SI/HI/VH/AH. Pt did not make any delusional statements during assessment. c/o constipation; ordered colace 100mg PO BID. encouraged to attend groups. 3 day up on 02/26/25. Continue todd tx plan. Patient reports feeling good ; pt stated, I have a phone intake today for another domestic violence prison. If I don't get in there then I'll figure it out and go back to [place] . denies SI/HI/VH/AH. 3 day up on 02/26/25. patient plans on following up with outpatient providers. Status at Discharge Cognitive/behavioral status at discharge: Patient has insight and demonstrates good judgment in terms of wanting to pursue treatment. Patient has a safety plan that includes presenting to the closest ER or calling 911 if feeling unsafe. Functional status at discharge: independent ambulation Overall status at discharge: patient is back to baseline Time Spent with Patient Time attestation: Total time managing care of this patient today _20___ minutes. Time spent: Less than 30 minutes Discharge Plan Discharge Anticipated Discharge Date/Time: 02/26/25 11:00 Patient Disposition: Home, Self-Care Discharge Diagnosis: Schizoaffective d/o, PTSD, Cocaine use d/o Referrals: [facility] [Provider Group] - 1 Week Referral Note: 02-24-25 [facility] was added to patients chart. Please call [phone] to schedule a follow up appt within 7-10 days of discharge. No release or PCP on file. Discharge Medications: New nicotine (polacrilex) 2 mg Gum 4 mg buccal Q2H PRN (Reason: Nicotine Cravings) 30 Days Qty: 120 0RF nicotine 21 mg/24 hr Patch 24 Hour 21 mg transdermal DAILY 28 Days Qty: 28 0RF propranolol 10 mg Tablet 10 mg PO BID 30 Days Qty: 60 0RF Protocol: Hold for SBP/HR < HOLD for SBP < : 90 HOLD for HR < : 60 amlodipine 10 mg Tablet 10 mg PO BEDTIME 30 Days Qty: 30 0RF Protocol: Hold for SBP< HOLD for SBP < : 90 chlorpromazine 25 mg Tablet 50 mg PO BID 30 Days Qty: 120 0RF lisinopril 10 mg Tablet 10 mg PO DAILY 30 Days Qty: 30 0RF Protocol: Hold for SBP< HOLD for SBP < : 90 docusate sodium 100 mg Capsule 100 mg PO BID 30 Days Qty: 60 0RF cholecalciferol (vitamin D3) [Vitamin D3] 25 mcg (1,000 unit) capsule 25 mcg PO DAILY 30 Days Qty: 30 0RF fluticasone propion-salmeterol [Advair HFA] 115-21 mcg/actuation HFA aerosol inhaler 2 puff inhalation BID 30 Days Qty: 12 0RF Continued metformin 500 mg tablet 500 mg PO BID 30 Days Qty: 60 0RF sennosides [senna] 8.6 mg tablet 17.2 mg PO DAILY 30 Days Qty: 60 0RF benztropine 0.5 mg tablet 0.5 mg PO BID 30 Days Qty: 60 0RF clozapine 100 mg tablet 100 mg PO DAILY 30 Days Qty: 30 0RF aspirin 325 mg tablet,delayed release (DR/EC) 325 mg PO DAILY 30 Days Qty: 30 0RF gabapentin 800 mg tablet 800 mg PO QID 30 Days Qty: 120 0RF trazodone 100 mg tablet 100 mg PO BEDTIME 30 Days Qty: 30 0RF lidocaine 5 % adhesive patch,medicated 1 patch topical DAILY 30 Days Qty: 30 0RF calcium carbonate [Иван-Gest Antacid] 200 mg calcium (500 mg) tablet,chewable 200 mg PO TID PRN (Reason: Gastric Reflux) 30 Days Qty: 90 0RF albuterol sulfate [Ventolin HFA] 90 mcg/actuation HFA aerosol inhaler See Rx Instructions .ROUTE .COMPLEX PRN (Reason: Shortness Of Breath) 30 Days Qty: 1 0RF Rx Instructions: 2 puffs oxybutynin chloride 5 mg tablet 5 mg PO BID 30 Days Qty: 60 0RF clozapine 200 mg tablet 200 mg PO BEDTIME 30 Days Qty: 30 0RF Changed cyanocobalamin (vitamin B-12) [Vitamin B-12] 1,000 mcg Tablet 2,000 mcg PO DAILY 30 Days Qty: 60 0RF hydroxyzine pamoate 50 mg capsule 50 mg PO QID 30 Days Qty: 120 0RF melatonin 3 mg tablet 3 mg PO BEDTIME PRN (Reason: Insomnia) 30 Days Qty: 30 0RF fluticasone propionate 50 mcg/actuation [place],Suspension 1 spray INTRANASAL DAILY 30 Days Qty: 16 0RF diclofenac sodium 1 % gel 2 g topical BID-TID 30 Days Qty: 100 0RF Rx Instructions: Doctor's Order haloperidol 5 mg Tablet 10 mg PO TID 30 Days Qty: 180 0RF Discontinued prazosin 1 mg capsule 1 mg PO BEDTIME amlodipine 5 mg tablet 5 mg PO DAILY lisinopril 5 mg tablet 5 mg PO DAILY chlorpromazine 50 mg tablet 50 mg PO BEDTIME chlorpromazine [Thorazine] 25 mg Tablet 25 mg PO Q6H PRN (Reason: Agitation) Advair HFA inhaler 2 puff inhalation BID Discharge Orders: Discharge Order (Routine); Ordered 02/26/25 Ordered By: Malaika Plascencia Diet: Regular diet Activity on Discharge: As tolerated Stand Alone Forms: Patient Portal Discharge page, Community Support Print Language: Comoran Care Plan Goals: Maintain mood and safe behaviors Take medications as prescribed Continue to pursue sobriety Practice coping skills Continue with outpatient providers and reach out to them as needed Health Concerns: Mood stability and behaviors Sobriety Plan of Treatment: Follow up with your PCP, psychiatric provider and other outpatient providers regarding above concerns Take medications as prescribed Assessment: Patient has insight and demonstrates good judgment in terms of wanting to pursue treatment. Patient has a safety plan that includes presenting to the closest ER or calling 911 if feeling unsafe. Discharge Date/Time: 02/26/25 11:25
[2025-02-25 19:30] VITALS: BP 145/64; PULSE 85; RESP 16; TEMP 36.6; O2SAT 97
[2025-02-25 19:45] VITALS: BP 122/86; PULSE 105; RESP 18; TEMP 37.2; O2SAT 97
[2025-02-25] MEDS: chlorproMAZINE HCl 25 MG TABLET 50 MG PO (21:36)
[2025-02-25] MEDS: cloZAPine 100 MG TABLET 200 MG PO (21:37)
[2025-02-25 21:40] VITALS: BP 140/92; PULSE 109
[2025-02-25] MEDS: traZODone HCL 100 MG TABLET PO (21:40)
[2025-02-25 21:44] VITALS: BP 140/92
[2025-02-25] MEDS: amLODIPine Besylate 10 MG TABLET PO (21:44)
[2025-02-26] MEDS: Acetaminophen 325 MG TABLET 975 MG PO (07:20)
[2025-02-26 07:54] VITALS: BP 137/88; PULSE 99; RESP 16; TEMP 36.7; O2SAT 96
[2025-02-26 09:02] VITALS: BP 135/91
[2025-02-26] MEDS: lisinopriL 10 MG TABLET PO (09:02)
[2025-02-26] MEDS: oxyBUTYnin chloride 5 MG TABLET PO (09:02)
[2025-02-26] MEDS: cloZAPine 100 MG TABLET PO (09:02)
[2025-02-26] MEDS: Gabapentin 400 MG CAPSULE 800 MG PO (09:02)
[2025-02-26] MEDS: Docusate Sodium 100 MG CAPSULE PO (09:02)
[2025-02-26] MEDS: Benztropine Mesylate 0.5 MG TABLET PO (09:02)
[2025-02-26 09:05] VITALS: BP 135/91; PULSE 121
[2025-02-26] MEDS: Propranolol HCL 10 MG TABLET PO (09:05)
[2025-02-26] MEDS: Sennosides 8.6 MG TABLET 17.2 MG PO (09:05)
[2025-02-26] MEDS: metFORMIN HCl 500 MG TABLET PO (09:05)
[2025-02-26] MEDS: Lidocaine 4 % Patch ADH..PATCH 1 PATCH TRANSDERMA (09:06)
[2025-02-26] MEDS: Fluticasone/Vilanterol 200/25 BLST.W.DEV 1 PUFF INHALE (09:10)
[2025-02-26] MEDS: Nicotine 21 MG PATCH.TD24 TRANSDERMA (09:12)
[2025-02-26] MEDS: hydrOXYzine HCL 25 MG TABLET PO (09:18)
[2025-02-26] MEDS: HaloperidoL 5 MG TABLET 10 MG PO (09:19)
== END 2025-02-26 11:25 | disposition home or self-care (01) | DRG 750 ==
PROVIDERS: Nurse Practitioner Family; Admitting Provider Psychiatry & Neurology Psychiatry; Responsible Provider Registered Nurse; Visit Provider Psychiatry & Neurology Psychiatry
DX: F25.9 Schizoaffective disorder, unspecified (principal); E11.9 Type 2 diabetes mellitus without complications; I10 Essential (primary) hypertension; F14.10 Cocaine abuse, uncomplicated; F17.210 Nicotine dependence, cigarettes, uncomplicated; Z71.6 Tobacco abuse counseling; F43.10 Post-traumatic stress disorder, unspecified; M54.9 Dorsalgia, unspecified; G89.29 Other chronic pain; J45.909 Unspecified asthma, uncomplicated; Z86.711 Personal history of pulmonary embolism; Z79.82 Long term (current) use of aspirin; Z79.84 Long term (current) use of oral hypoglycemic drugs; Z79.899 Other long term (current) drug therapy
CPT/HCPCS: 0241U; 36415; 80053; 80061; 82565; 82607; 82746; 83036; 84439; 84443; 85025; 85048; 93005

== ENCOUNTER → 2025-02-22 23:46 | Outpatient (BNV) | payer MEDICAID, SELFPAY | PROVIDERS: Admitting Provider Psychiatry & Neurology Psychiatry; Responsible Provider Registered Nurse; Visit Provider Nurse Practitioner Family | DX: I10 Essential (primary) hypertension (principal) | CPT/HCPCS: 99221 ==

== ENCOUNTER → 2025-02-22 23:46 | Outpatient (BNV) | payer OTHER, SELFPAY | PROVIDERS: Admitting Provider Psychiatry & Neurology Psychiatry; Responsible Provider Registered Nurse; Visit Provider Registered Nurse | DX: F25.0 Schizoaffective disorder, bipolar type (principal); F14.10 Cocaine abuse, uncomplicated; F43.11 Post-traumatic stress disorder, acute | CPT/HCPCS: 99232; 99233 ==